=== PATIENT | male | born 1945 | race Asian ===

== ENCOUNTER 2022-05-14 05:42 | Inpatient (IN) | payer MEDICARE, OTHER ==
[2022-05-14] VITALS (30 sets, daily range): BP systolic 100–142; BP diastolic 52–66
[~2022-05-14] VITALS: Ht 167.6 cm; Wt 73.9 kg
[2022-05-14] MEDS ORDERED: PIPERACILLIN /TAZOBACTAM 3.375 G in IV D5W 50 ML IV ONE (06:00)
[2022-05-14] MEDS ORDERED: VANCOMYCIN 1 GM in IV D5W 250 ML IV ONE (06:00)
--- NOTE | 2022-05-14 06:02 | NUR ---
BETTE 39 FROM A CARE FACILITY FOR C/O LOW O2 SAT. PATIENT OBTUNDED, NON-VERBAL WITH TRAH AND VENT DEPENDENT. PATIENT WAS PLACED TO BED 5 ER. RT AAT BED SIDE. PT WAS CONNECTED TO VENT, SATTING 96%, SUCTIONED WITH BLOODY DISCHARGES. PT WAS PLACED ON A MONITOR. AFEBRILE. GT, F/C IN PLACE. WILL CONT TO MONITOR
[2022-05-14 06:25] LABS: ABG BASE EXCESS -1.7 mmol/L; ABG PCO2 37.8 mmHg (35.0-45.0); ABG PH 7.399 (7.350-7.450); ABG PO2 55.2 mmHg (75.0-100.0); COHb 0.3 % (0.5-1.5); MetHb 0.5 % (0.0-1.5); O2Hb 87.5 % (94.0-97.0); PEEP,BG 5 cm H2O; SITE, ABG Left Radial; VT, ABG 550 mL
[2022-05-14] MEDS ORDERED: PIPERACILLIN /TAZOBACTAM 3.375 G VIAL IV ONE (06:40)
--- NOTE | 2022-05-14 06:53 | NUR ---
BLOOD AND CULTURES COLLECTED AND SENT TO LAB
--- NOTE | 2022-05-14 06:53 | NUR ---
COVID SWAB COLLECTED
--- NOTE | 2022-05-14 06:55 | NUR ---
NURSE SUP WAS CALLED FOR MIDLINE
--- NOTE | 2022-05-14 07:07 | NUR ---
VENT SETTINGS: FiO2 100%, VT 550, RATE 20, PEEP 8
--- NOTE | 2022-05-14 07:08 | NUR ---
XRAY AT BEDSIDE
[2022-05-14 07:10] LABS: BASOPHILS # (AUTO) 0.1 K/uL (0.0-0.2); BASOPHILS % (AUTO) 0.4 % (0.0-2.0); EOSINOPHILS % (AUTO) 1.3 % (0.0-6.0); HEMATOCRIT 24 % (39-51); LYMPHOCYTES # (AUTO) 0.7 K/uL (0.8-4.8); LYMPHOCYTES % (AUTO) 4.2 % (20.0-44.0); MEAN CORPUSCULAR HGB CONC 33 g/dl (31.0-36.0); MEAN CORPUSCULAR VOLUME 81 fL (80-96); MONOCYTES # (AUTO) 0.5 K/uL (0.1-1.30); NEUTROPHILS % (AUTO) 91.1 % (43.0-81.0); PLATELET COUNT (AUTO) 146 K/uL (150-450); RED BLOOD CELL COUNT(AUTO) 2.98 MIL/uL (4.5-6.0); WHITE BLOOD COUNT (AUTO) 16.5 K/uL (4.3-11.0)
[2022-05-14 07:13] LABS: CALCIUM, SERUM 8.6 mg/dL (8.5-10.1); CARBON DIOXIDE 23 mmol/L (21-32); CHLORIDE 84 mmol/L (98-107); CREATININE 5.2 mg/dL (0.6-1.3); GLUCOSE 171 mg/dL (74-106); SODIUM SERUM 124 mmol/L (136-145)
--- NOTE | 2022-05-14 07:17 | NUR ---
CRITICAL BUN 169
[2022-05-14 07:19] LABS: ALANINE AMINOTRANSFERASE 53 U/L (12-78); ALBUMIN 1.9 g/dL (3.4-5.0); ALKALINE PHOSPHATASE 101 U/L (46-116); ASPARTATE AMINOTRANSFERASE 53 U/L (15-37); BILIRUBIN,DIRECT 0.2 mg/dL (0.0-0.2); BILIRUBIN,TOTAL 0.4 mg/dL (0.2-1.0); TOTAL PROTEIN, SERUM 6.9 g/dL (6.4-8.2)
[2022-05-14 07:23] LABS: UREA NITROGEN, BLOOD 169 mg/dL (7-18)
[2022-05-14 07:24] LABS: BILIRUBIN,URINE NEGATIVE (NEGATIVE); COLOR,URINE YELLOW (YELLOW); LEUKOCYTE ESTERASE ,URINE 1+ (NEGATIVE); NITRITE, URINE NEGATIVE (NEGATIVE); PROTEIN,URINE 2+ mg/dl (NEGATIVE); UGLUCOSE NEGATIVE (NEGATIVE); UROBILINOGEN,URINE 0.2 EU/dL (0.2)
[2022-05-14 07:32] LABS: BACTERIA,URINE Moderate /HPF (None Seen); CALCIUM OXALATE CRYSTALS,UR Few /HPF (None Seen); SQUAMOUS EPITHELIAL CELL,UR Few /HPF (None Seen); WBC,URINE TOO NUMEROUS TO COUN /HPF (0-3)
--- NOTE | 2022-05-14 07:39 | NUR ---
CALLED NUMBER LISTED ON POLST TO OBTAIN PICC LINE CONSENT, LEFT A VOICEMAIL. DR SOLIZ SIGNED EMEGENCY CONSENT, PICC LINE NURSE AT BEDSIDE
--- NOTE | 2022-05-14 08:18 | NUR ---
PICC LINE CONFIRMED BY X RAY. PICC LINE LOCATED R UPPER ARM
[2022-05-14] MEDS: IV NS 0.9% 1,000 ML IV PRN ×2 (08:29→13:47)
[2022-05-14] MEDS ORDERED: AMIN30LI2 GT (08:30)
[2022-05-14] MEDS ORDERED: ZINC50TA69 GT (08:30)
[2022-05-14] MEDS ORDERED: SENN-261 GT (08:30)
[2022-05-14] MEDS ORDERED: MAGN400O6 GT (08:30)
[2022-05-14] MEDS ORDERED: INSU100V42 SQ (08:30)
[2022-05-14] MEDS ORDERED: CLON1PAT2 TD (08:30)
[2022-05-14] MEDS ORDERED: ALBU2.5V38 IH ×2 (08:30)
[2022-05-14] MEDS ORDERED: CHLO473M5 MM (08:30)
[2022-05-14] MEDS ORDERED: ASCO-352 GT (08:30)
[2022-05-14] MEDS ORDERED: CRAN425C6 GT (08:30)
[2022-05-14] MEDS ORDERED: METO25TA20 GT (08:30)
[2022-05-14] MEDS ORDERED: ACET650S11 RC (08:30)
[2022-05-14] MEDS ORDERED: ACET-2605 GT (08:30)
[2022-05-14] MEDS ORDERED: DOCU50LI GT (08:30)
[2022-05-14] MEDS ORDERED: INSU100V7 SQ (08:30)
[2022-05-14] MEDS ORDERED: NUTR1PAC14 GT (08:30)
[2022-05-14] MEDS ORDERED: DEXT38GE12 GT (08:30)
[2022-05-14] MEDS ORDERED: HYDR-4303 GT (08:30)
[2022-05-14] MEDS ORDERED: AMLO-212 GT (08:30)
[2022-05-14] MEDS ORDERED: HYDR-4076 GT (08:30)
[2022-05-14] MEDS ORDERED: LANS30CA56 GT (08:30)
[2022-05-14] MEDS ORDERED: METF-442 GT (08:30)
[2022-05-14] MEDS ORDERED: IPRA0.2S9 IH ×2 (08:30)
[2022-05-14] MEDS ORDERED: COLL30OI TP (08:30)
[2022-05-14] MEDS ORDERED: MULT-447 GT (08:30)
[2022-05-14] MEDS ORDERED: ACET-868 GT (08:30)
[2022-05-14] MEDS ORDERED: NUT.237L30 GT (08:30)
[2022-05-14] MEDS ORDERED: ASPI-1169 GT (08:30)
[2022-05-14] MEDS ORDERED: BISA10SU11 RC (08:30)
[2022-05-14] MEDS ORDERED: CRAN3875 GT (08:30)
[2022-05-14] MEDS ORDERED: MERO1VIA23 IV (08:30)
--- NOTE | 2022-05-14 08:53 | NUR ---
RT AT BEDSIDE, PEEP CHANGED TO [address] SOLIS'S ORDERS
--- NOTE | 2022-05-14 09:36 | NUR ---
REPORT GIVEN TO GABBI FOR CORIE
[2022-05-14] MEDS ORDERED: PIPERACILLIN /TAZOBACTAM 3.375 G in IV D5W 50 ML IV SCH (10:00)
--- NOTE | 2022-05-14 11:17 | NUR ---
PT TAKEN TO CT AND TO ICU AFTER WITH ACLS PROTOCOLS IN PLACE. PT RECEIVED BY SARINA SEO.
[2022-05-14] MEDS ORDERED: DESMOPRESSIN 20 MCG in IV NS 0.9% 50 ML IV ONE (13:00)
[2022-05-14] MEDS ORDERED: PIPERACILLIN /TAZOBACTAM 2.25 G in IV D5W 50 ML IV SCH (15:00)
[2022-05-14] MEDS ORDERED: HEPARIN INFUSION/D5W 500 ML IV PRN (18:00)
[2022-05-14] MEDS ORDERED: DILTIAZEM HCL 50 MG IV IV ONE (18:00)
[2022-05-14] MEDS ORDERED: AMIODARONE 150 MG in IV D5W 100 ML IV ONE (18:30)
[2022-05-14] MEDS: AMIODARONE 450 MG in IV D5W 241 ML IV PRN (18:45)
[2022-05-14] MEDS ORDERED: ONDANSETRON HCL/PF 4 MG/2 ML VIAL IVP PRN (19:00)
[2022-05-14] MEDS ORDERED: Z GUARD REMEDY 4 OZ OINT TP PRN (19:00)
[2022-05-14] MEDS: MEROPENEM 500 MG in IV NS 0.9% 50 ML IV SCH (19:01)
[2022-05-14 20:35] LABS: CALCIUM, SERUM 8.5 mg/dL (8.5-10.1); CARBON DIOXIDE 28 mmol/L (21-32); CHLORIDE 88 mmol/L (98-107); CREATININE 4.1 mg/dL (0.6-1.3); GLUCOSE 231 mg/dL (74-106); POTASSIUM 4.9 mmol/L (3.5-5.1); SODIUM SERUM 127 mmol/L (136-145)
[2022-05-14 20:43] LABS: UREA NITROGEN, BLOOD 133 mg/dL (7-18)
[2022-05-14] MEDS: HEPARIN SODIUM, PORCINE 5000 UNITS/1 ML VIAL SQ SCH (21:00)
[2022-05-14 23:28] LABS: CALCIUM, SERUM 8.5 mg/dL (8.5-10.1); CARBON DIOXIDE 28 mmol/L (21-32); CHLORIDE 89 mmol/L (98-107); CREATININE 4.1 mg/dL (0.6-1.3); GLUCOSE 224 mg/dL (74-106); POTASSIUM 5.2 mmol/L (3.5-5.1); SODIUM SERUM 129 mmol/L (136-145)
[2022-05-14 23:31] LABS: UREA NITROGEN, BLOOD 130 mg/dL (7-18)
[2022-05-15] VITALS (61 sets, daily range): BP systolic 104–150; BP diastolic 47–73
[2022-05-15] MEDS: IV NS 0.9% 1,000 ML IV PRN ×3 (01:00→22:07)
[2022-05-15] MEDS: AMIODARONE 450 MG in IV D5W 241 ML IV PRN (04:10)
[2022-05-15 04:47] LABS: BASOPHILS % (AUTO) 0.1 % (0.0-2.0); EOSINOPHILS % (AUTO) 3.6 % (0.0-6.0); HEMATOCRIT 22 % (39-51); HEMOGLOBIN 7.2 g/dL (13.5-17.5); LYMPHOCYTES # (AUTO) 0.5 K/uL (0.8-4.8); LYMPHOCYTES % (AUTO) 3.2 % (20.0-44.0); MEAN CORPUSCULAR HGB CONC 33 g/dl (31.0-36.0); MEAN CORPUSCULAR VOLUME 83 fL (80-96); MONOCYTES # (AUTO) 0.4 K/uL (0.1-1.30); MONOCYTES % (AUTO) 2.2 % (2.0-12.0); NEUTROPHILS # (AUTO) 14.8 K/uL (1.8-8.9); NEUTROPHILS % (AUTO) 90.9 % (43.0-81.0); PLATELET COUNT (AUTO) 130 K/uL (150-450); RED BLOOD CELL COUNT(AUTO) 2.64 MIL/uL (4.5-6.0); WHITE BLOOD COUNT (AUTO) 16.3 K/uL (4.3-11.0)
[2022-05-15 04:58] LABS: CALCIUM, SERUM 8.5 mg/dL (8.5-10.1); CARBON DIOXIDE 26 mmol/L (21-32); CHLORIDE 90 mmol/L (98-107); CREATININE 3.9 mg/dL (0.6-1.3); GLUCOSE 197 mg/dL (74-106); MAGNESIUM 2.7 mg/dL (1.8-2.4); PHOSPHORUS 5.1 mg/dL (2.5-4.9); SODIUM SERUM 129 mmol/L (136-145)
[2022-05-15 05:02] LABS: UREA NITROGEN, BLOOD 126 mg/dL (7-18)
[2022-05-15 06:06] LABS: CHOLESTEROL 78 mg/dL (<200); LDL 21 mg/dL (0-99); TRIGLYCERIDES 543 mg/dL (30-150)
[2022-05-15 06:08] LABS: HDL CHOLESTEROL 9 mg/dL (40-60)
[2022-05-15] MEDS: MEROPENEM 500 MG in IV NS 0.9% 50 ML IV SCH ×2 (06:46→18:10)
[2022-05-15] MEDS ORDERED: VANCOMYCIN POST DIALYSIS 500MG IV PRN ×2 (08:00)
[2022-05-15 08:51] LABS: ABG BASE EXCESS 2.1 mmol/L; ABG PCO2 41.8 mmHg (35.0-45.0); ABG PH 7.424 (7.350-7.450); ABG PO2 71.1 mmHg (75.0-100.0); AaDO2 455.4 mmHg; COHb 0.2 % (0.5-1.5); MetHb 0.2 % (0.0-1.5); O2Hb 93.6 % (94.0-97.0); SITE, ABG Right Radial
[2022-05-15] MEDS: HEPARIN SODIUM, PORCINE 5000 UNITS/1 ML VIAL SQ SCH ×2 (09:00→20:38)
[2022-05-15] MEDS ORDERED: DEXTROSE 50%-WATER 50 ML DISP.SYRIN IV PRN (11:00)
[2022-05-15] MEDS: BLOOD SUGAR DIAGNOSTIC 1 EACH STRIP IN SCH ×3 (11:31→23:05)
[2022-05-15] MEDS ORDERED: BLOOD SUGAR DIAGNOSTIC 1 EACH STRIP IN SCH (12:00)
[2022-05-15] MEDS: INSULIN REGULAR, HUMAN 100 UNIT/ML 3 ML VIAL SQ PRN ×3 (12:18→23:08)
[2022-05-15] MEDS ORDERED: VANCOMYCIN 1 GM in IV D5W 250ml IV ONE (13:00)
[2022-05-15] MEDS ORDERED: EPOETIN ALFA-EPBX 10,000 UNIT/ML VIAL IV ONE (15:00)
[2022-05-15] MEDS: AMIODARONE HCL 200 MG TABLET GT SCH ×2 (16:06→20:37)
--- NOTE | 2022-05-15 18:00 | NUR ---
ICU Note: Cont with Vent Management at this time. Cont to titirate FiO2 to keep O2 Sat >88%. Improved oxygenation noted. Hx of VDRF Recent CXR shows Bilateral chest infiltrates most likely ventilator associated pneumonia. Follow up ABG and treat as needed. Currently on Temporary HD for Acute renal failure. Some improvment with BUN/Cr with IVF hydration. Will Start TF tonight. G tube in place. Continue ICU level of care, per Dr Merritt.
[2022-05-15] MEDS: NEPRO 1,000 ML BOTTLE NG PRN (19:49)
--- NOTE | 2022-05-15 20:07 | NUR ---
MESSAGE BROKER DEVELOPER OPENING NOTE PT RECEIVED IN BED, OBTUNDED, NON-VERBAL, OPENS EYES. PT ON VENT WITH PORTEX #7, AC 20, TV 550, FIO2 50%, PEEP 10 WITH CURRENT O2SAT OF 91%; NO S/S OF RESP DISTRESS, NO SOB OR COUGH, NON-LABORED AND EQUAL BREATHING; APPEARS COMFORTABLE OVERALL. PT ATTACHED TO BEDSIDE MONITOR, SR WITH HR OF 95. CONDOM CATH IN PLACE. CLINT PICC INTACT AND PATENT, FLUSHES EASILY WITH NO RESISTANCE, NS AT 100 ML/HR; RIJ HD CATH INTACT AND PATENT, DRESSING C/D/I. BED IN LOWEST POSITION, CALL LIGHT WITHIN REACH, SIDE RAILS UP X3. WILL CONTINUE TO MONITOR THROUGHOUT THE NIGHT.
[2022-05-15] MEDS: ACETAMINOPHEN 325 MG TABLET PO PRN (20:37)
--- NOTE | 2022-05-15 20:38 | NUR ---
RN NOTE PT NOTED TO HAVE TEMPERATURE OF 100.0; PT ADMINISTERED TYLENOL 650 MG, WILL MONITOR FOR EFFECTIVENESS. HEPARIN SCHEDULED FOR 2100 HELD D/T BLEEDING NOTED FROM TRACH SITE.
[2022-05-16] VITALS (29 sets, daily range): BP systolic 107–159; BP diastolic 48–66
[2022-05-16] MEDS: BLOOD SUGAR DIAGNOSTIC 1 EACH STRIP IN SCH ×3 (05:30→18:14)
[2022-05-16] MEDS: INSULIN REGULAR, HUMAN 100 UNIT/ML 3 ML VIAL SQ PRN ×3 (05:32→17:25)
[2022-05-16 06:20] LABS: CALCIUM, SERUM 8.6 mg/dL (8.5-10.1); CARBON DIOXIDE 28 mmol/L (21-32); CHLORIDE 98 mmol/L (98-107); CREATININE 2.9 mg/dL (0.6-1.3); GLUCOSE 255 mg/dL (74-106); MAGNESIUM 2.5 mg/dL (1.8-2.4); PHOSPHORUS 3.7 mg/dL (2.5-4.9); POTASSIUM 3.6 mmol/L (3.5-5.1); SODIUM SERUM 137 mmol/L (136-145)
[2022-05-16 06:29] LABS: EOSINOPHILS % (AUTO) 3.5 % (0.0-6.0); HEMATOCRIT 29 % (39-51); HEMOGLOBIN 9.2 g/dL (13.5-17.5); LYMPHOCYTES # (AUTO) 0.6 K/uL (0.8-4.8); LYMPHOCYTES % (AUTO) 3.8 % (20.0-44.0); MEAN CORPUSCULAR HGB CONC 32 g/dl (31.0-36.0); MEAN CORPUSCULAR VOLUME 84 fL (80-96); MONOCYTES # (AUTO) 0.3 K/uL (0.1-1.30); MONOCYTES % (AUTO) 1.8 % (2.0-12.0); NEUTROPHILS # (AUTO) 15.3 K/uL (1.8-8.9); NEUTROPHILS % (AUTO) 90.9 % (43.0-81.0); PLATELET COUNT (AUTO) 151 K/uL (150-450); RED BLOOD CELL COUNT(AUTO) 3.48 MIL/uL (4.5-6.0); WHITE BLOOD COUNT (AUTO) 16.9 K/uL (4.3-11.0)
--- NOTE | 2022-05-16 06:34 | NUR ---
TECHNOLOGIST DEVELOPMENT CLOSING NOTE PT REMAINS IN BED, OBTUNDED, OPENS EYES, NON-VERBAL; NO SIGNIFICANT CHANGES TO NEURO STATUS. CONTINUES ON SAME VENT SETTINGS WITH FIO2 50% AND PEEP AT 10; NOTED TO HAVE O2SAT AT 89% WHEN CLEANING PT WITH HIGHEST O2SAT AT 94%; NO S/S OF RESP DISTRESS, NO SOB, NON-LABORED AND EQUAL BREATHING. ATTACHED TO EXTERNAL MONITOR, SR-ST WITH HR RANGING FROM 87-108. CONDOM CATH INTACT AND PATENT, DRAINING CLOUDY AND YELLOW URINE WITH MINIMAL URINE OUTPUT OF 25 ML THROUGHOUT THE WHOLE NIGHT. GTD C/D/I WITH NEPRO NOW AT 45 ML/HR WITH NO RESIDUALS NOTED. CLINT PICC INFUSING NS AT 100 ML/HR. WOUNDS CLEANSED AND NEW DRESSINGS APPLIED. ALL DUE MEDS ADMINISTERED DURING THE NIGHT. BED IN LOWEST POSITION, CALL LIGHT WITHIN REACH, SIDE RAILS UP X3. WILL ENDORSE TO DAYSHIFT NURSE TO CONTINUE CARE.
[2022-05-16 06:43] LABS: IRON, SERUM 18 ug/dl (50-175); TOTAL IRON BINDING CAPACITY 102 ug/dl (250-450)
[2022-05-16 06:55] LABS: UREA NITROGEN, BLOOD 84 mg/dL (7-18)
[2022-05-16 07:11] LABS: FERRITIN 6654 ng/mL (8-388)
[2022-05-16 08:15] LABS: ABG BASE EXCESS 1.3 mmol/L; ABG OXYGEN SATURATION 91.3 % (92.0-98.5); ABG PCO2 33.6 mmHg (35.0-45.0); ABG PH 7.483 (7.350-7.450); ABG PO2 56.4 mmHg (75.0-100.0); AaDO2 262.3 mmHg; COHb 0.6 % (0.5-1.5); MetHb 0.3 % (0.0-1.5); O2Hb 90.5 % (94.0-97.0); SITE, ABG Right Radial
[2022-05-16] MEDS: HEPARIN SODIUM, PORCINE 5000 UNITS/1 ML VIAL SQ SCH ×2 (09:00→20:59)
[2022-05-16] MEDS ORDERED: VANCOMYCIN HCL 0.75 GM in IV D5W 250 ML IV SCH (09:00)
[2022-05-16] MEDS: MEROPENEM 500 MG in IV NS 0.9% 50 ML IV SCH ×2 (09:25→18:14)
[2022-05-16] MEDS: AMIODARONE HCL 200 MG TABLET GT SCH ×2 (09:29→21:01)
--- NOTE | 2022-05-16 09:32 | NUR ---
WOUND CARE CONSULT: PT PRESENTS WITH INTACT DEEP TISSUE INJURIES WITH SCARRING TO BILATERAL HEELS, HYPERGRANULATION TISSUE TO G TUBE SITE AND SACRAL STAGE 3 PRESSURE ULCER, ALL PRESENT ON ADMISSION. DR ROE MANRIQUEZ CALLED FOR SURGICAL CONSULT. DISCUSSED SKIN PROTECTION WITH NURSING STAFF. PT IS ON DEEP ISOFLEX LOW AIRLOSS BED. CONDOM CATH IN USE AT THIS TIME. IN AGREEMENT WITH PLAN OF CARE. Addendum: 05/16/22 at 9111 by ALIDA RODRIGUEZ WNDNU Amended: Links added.
[2022-05-16] MEDS ORDERED: IV NS 0.9% 1,000 ML IV SCH (10:00)
[2022-05-16] MEDS: THERAHONEY GEL 1.5 OZ TUBE TP SCH (12:01)
[2022-05-16 12:21] LABS: BAND % (MANUAL) 23 % (0.0-5.0); EOSINOPHILS % (MANUAL) 2 % (0-4); LYMPHOCYTES % (MANUAL) 5 % (16-48); MONOCYTES % (MANUAL) 2 % (0-11.0); NEUTROPHILS % (MANUAL) 68 (42-76)
--- NOTE | 2022-05-16 17:35 | NUR ---
ICU Note; Cont with Vent Management at this time. Hx of VDRF. Cont to titirate FiO2 to keep O2 Sat >88%. remains on PEP+10 Cont with IV Abx as scheduled to treat Bilateral chest infiltrates most likely ventilator associated pneumonia per CXR Follow up ABG and treat as needed. Held HD for today 05/16/22. Acute renal failure poss resolving with improvement noted with BUN/Cr and electrolytes. Cont to tolerate TF as ordered. Abd distended slightly firm. No emesis/vomiting noted. Cont with Accucheck and cover with ISS. follow up HgA1C result Continue ICU level of care, per PMD
[2022-05-16] MEDS: ACETAMINOPHEN 325 MG TABLET PO PRN (20:57)
--- NOTE | 2022-05-16 21:02 | NUR ---
RN NOTE NON ADMINISTER HEPARIN 5000 D/T BLEEDING AT TRACH SITE.
[2022-05-17] VITALS (29 sets, daily range): BP systolic 101–152; BP diastolic 50–73
[2022-05-17] MEDS: NEPRO 1,000 ML BOTTLE NG PRN (00:34)
[2022-05-17] MEDS: BLOOD SUGAR DIAGNOSTIC 1 EACH STRIP IN SCH ×5 (00:35→23:27)
[2022-05-17] MEDS: INSULIN REGULAR, HUMAN 100 UNIT/ML 3 ML VIAL SQ PRN ×5 (00:43→23:28)
[2022-05-17 04:41] LABS: CALCIUM, SERUM 8.8 mg/dL (8.5-10.1); CARBON DIOXIDE 28 mmol/L (21-32); CHLORIDE 102 mmol/L (98-107); CREATININE 3.1 mg/dL (0.6-1.3); GLUCOSE 223 mg/dL (74-106); MAGNESIUM 2.6 mg/dL (1.8-2.4); PHOSPHORUS 4.8 mg/dL (2.5-4.9); POTASSIUM 3.5 mmol/L (3.5-5.1); SODIUM SERUM 140 mmol/L (136-145)
[2022-05-17 04:43] LABS: UREA NITROGEN, BLOOD 96 mg/dL (7-18)
[2022-05-17 05:00] LABS: BASOPHILS % (AUTO) 0.1 % (0.0-2.0); EOSINOPHILS % (AUTO) 3.2 % (0.0-6.0); LYMPHOCYTES # (AUTO) 0.9 K/uL (0.8-4.8); LYMPHOCYTES % (AUTO) 5.1 % (20.0-44.0); MEAN CORPUSCULAR HGB CONC 32 g/dl (31.0-36.0); MEAN CORPUSCULAR VOLUME 84 fL (80-96); MONOCYTES # (AUTO) 0.3 K/uL (0.1-1.30); MONOCYTES % (AUTO) 1.7 % (2.0-12.0); NEUTROPHILS # (AUTO) 16.7 K/uL (1.8-8.9); NEUTROPHILS % (AUTO) 89.9 % (43.0-81.0); PLATELET COUNT (AUTO) 179 K/uL (150-450); RED BLOOD CELL COUNT(AUTO) 2.39 MIL/uL (4.5-6.0); WHITE BLOOD COUNT (AUTO) 18.6 K/uL (4.3-11.0)
[2022-05-17 05:14] LABS: HEMATOCRIT 20 % (39-51); HEMOGLOBIN 6.5 g/dL (13.5-17.5)
[2022-05-17 05:35] LABS: BAND % (MANUAL) 19 % (0.0-5.0); BASOPHILS % (MANUAL) 0 % (0.0-2.0); EOSINOPHILS % (MANUAL) 1 % (0-4); LYMPHOCYTES % (MANUAL) 6 % (16-48); MONOCYTES % (MANUAL) 2 % (0-11.0); NEUTROPHILS % (MANUAL) 71 (42-76)
[2022-05-17] MEDS: MEROPENEM 500 MG in IV NS 0.9% 50 ML IV SCH ×2 (06:25→19:28)
--- NOTE | 2022-05-17 07:10 | NUR ---
MEDICAL CLINIC MANAGER OPENING NOTE: RECEIVED PT. IN BED, OBTUNDED, ONLY OPENS EYES TO PAINFUL STIMULI. NO S/S OF PAIN/DISCOMFORT AT THIS TIME. ON TRACH/VENT: PORTEX#7; AC - 20; VT - 550; FIO2 - 60%; PEEP - 10. NO S/S OF RESPIRATORY DISTRESS. WATER AND SEWER SYSTEMS SUPERINTENDENT READS SINUS TACH AT THIS TIME. ON CONDOM CATH WITH CLOUDY YELLOW URINE WITH SEDIMENTS DRAINING BELOW THE BLADDER. SKIN ISSUES NOTED, WILL DO WOUND TREATMENT ORDERED. GENERALIZED EDEMA NOTED. IV ACCESS ON CLINT PICC, PATENT, WITH NS RUNNING AT TKO. ALSO HAS R IJ HD CATH, DRESSING C/D/I. IV ACCESS HAS NO S/S OF INFILTRATION. SAFETY MEASURES IN PLACE: BED IN LOWEST & LOCKED POSITION, HOB ELEVATED AT 30 DEGREES, BED ALARM ON, SIDE RAILS UP, CALL LIGHT WITHIN REACH. WILL TURN AND REPOSITION AT LEAST Q2H. WILL CONTINUE TO MONITOR PT. FOR ANY CHANGES.
--- NOTE | 2022-05-17 07:43 | NUR ---
RN CLOSING NOTE PATIENT OBTUNDED. ON MECHANICAL VENT, NO CHANGES IN SETTINGS. SINUS RHTYHM/ SINUS TACH ON THE MONITOR. PRN TYLENOL GIVEN FOR TMAX 101.3. ICE PACKS ALSO PLACED ON PATIENT. CONDOM CATH IN PLACE. MUCOID BM X1. WOUND CARE DONE ORDERED. NEPRO RUNNING. RESIDUAL 30. ABD DISTENDED. FLATULENCE PRESENT. ABX GIVEN ORDER. BLOOD SUGAR MONITORED AND COVERED PER SLIDING SCALE. PENDING ct OF HEAD. HD PER NEPHRO. CRITICAL FOR HGB THIS AM. RHEA GROVES ORDERED 1 UNIT PRBC. CONSENT SIGN VIA TELEPHONE FROM DAUGHTER DICK SCHMIDT. DAUGHTER ASLLisandro REQUEST A FAMILY MEETING WITH AND CATIA FOR POC.
[2022-05-17] MEDS: THERAHONEY GEL 1.5 OZ TUBE TP SCH (08:32)
[2022-05-17] MEDS: AMIODARONE HCL 200 MG TABLET GT SCH ×2 (08:33→21:41)
[2022-05-17] MEDS: HEPARIN SODIUM, PORCINE 5000 UNITS/1 ML VIAL SQ SCH ×2 (08:55→21:00)
--- NOTE | 2022-05-17 08:56 | NUR ---
DIRT SHOVELER NOTE: HEPARIN 5,000 UNITS SCHEDULED AT 0900 WILL BE HELD DUE TO HGB OF 6.5 TODAY AND NOTED BLEEDING FROM THE TRACH TUBING. WILL CONTINUE TO MONITOR FOR S/S OF BLEEDING AND HYPOVOLEMIA.
[2022-05-17 09:20] LABS: BASOPHILS % (AUTO) 0.1 % (0.0-2.0); EOSINOPHILS % (AUTO) 3.5 % (0.0-6.0); HEMATOCRIT 22 % (39-51); HEMOGLOBIN 7.1 g/dL (13.5-17.5); LYMPHOCYTES # (AUTO) 0.9 K/uL (0.8-4.8); LYMPHOCYTES % (AUTO) 4.7 % (20.0-44.0); MEAN CORPUSCULAR HGB CONC 32 g/dl (31.0-36.0); MEAN CORPUSCULAR VOLUME 84 fL (80-96); MONOCYTES # (AUTO) 0.4 K/uL (0.1-1.30); MONOCYTES % (AUTO) 2.3 % (2.0-12.0); NEUTROPHILS # (AUTO) 16.9 K/uL (1.8-8.9); NEUTROPHILS % (AUTO) 89.4 % (43.0-81.0); PLATELET COUNT (AUTO) 185 K/uL (150-450); RED BLOOD CELL COUNT(AUTO) 2.66 MIL/uL (4.5-6.0); WHITE BLOOD COUNT (AUTO) 18.9 K/uL (4.3-11.0)
[2022-05-17 10:13] LABS: ABG BASE EXCESS 3.4 mmol/L; ABG OXYGEN SATURATION 98.3 % (92.0-98.5); ABG PCO2 39.2 mmHg (35.0-45.0); ABG PH 7.463 (7.350-7.450); ABG PO2 114.6 mmHg (75.0-100.0); AaDO2 270.1 mmHg; COHb 0.3 % (0.5-1.5); MetHb 0.3 % (0.0-1.5); O2Hb 97.7 % (94.0-97.0); SITE, ABG Right Radial; VENT MODE, BG AC 20 550 60% +10
[2022-05-17] MEDS: ACETAMINOPHEN 325 MG TABLET PO PRN ×2 (10:56→21:42)
--- NOTE | 2022-05-17 12:00 | NUR ---
PITCHING COACH NOTE: PT. HAD AN ORAL TEMP OF 99.8F AT 1045. TYLENOL 650MG GIVEN @ 1056. ORAL TEMP NOW IS 99.5F. WILL CONTINUE TO MONITOR PT.'S TEMP.
--- NOTE | 2022-05-17 12:18 | NUR ---
ABSTRACT MAKER NOTE: 1 UNIT OF PRBC TRANSFUSION STARTED AT 1105. H/H THIS AM IS 6.5 WITH THE REPEAT RESULT OF 7.07/23. DR. POSADAS MADE AWARE AND ORDERED 1 UNIT OF PRBC ONLY. 2ND ORDER WILL BE CANCELLED PER DR. POSADAS. NO TRANSFUSION REACTION AT THIS TIME. WILL CONTINUE TO MONITOR FOR ANY CHANGES.
[2022-05-17 14:46] LABS: BASOPHILS % (AUTO) 0.2 % (0.0-2.0); EOSINOPHILS % (AUTO) 4.1 % (0.0-6.0); HEMATOCRIT 24 % (39-51); HEMOGLOBIN 7.6 g/dL (13.5-17.5); LYMPHOCYTES # (AUTO) 0.8 K/uL (0.8-4.8); LYMPHOCYTES % (AUTO) 4.7 % (20.0-44.0); MEAN CORPUSCULAR HGB CONC 32 g/dl (31.0-36.0); MEAN CORPUSCULAR VOLUME 86 fL (80-96); MONOCYTES # (AUTO) 0.4 K/uL (0.1-1.30); MONOCYTES % (AUTO) 2.1 % (2.0-12.0); NEUTROPHILS # (AUTO) 15.2 K/uL (1.8-8.9); NEUTROPHILS % (AUTO) 88.9 % (43.0-81.0); PLATELET COUNT (AUTO) 177 K/uL (150-450); RED BLOOD CELL COUNT(AUTO) 2.77 MIL/uL (4.5-6.0); WHITE BLOOD COUNT (AUTO) 17.1 K/uL (4.3-11.0)
[2022-05-17] MEDS ORDERED: EPOETIN ALFA-EPBX 10,000 UNIT/ML VIAL IV ONE (15:00)
--- NOTE | 2022-05-17 15:00 | NUR ---
MEAT GRADING MACHINE OPERATOR NOTE: 1 UNIT OF PRBC TRANSFUSION STARTED AT 1105. FINISHED AT 1320 WITH NO TRANSFUSION REACTION NOTED. RECENT CBC AFTER TRANSFUSION SHOWS H/H OF 7.6/24. WILL CONTINUE TO MONITOR PT. FOR S/S OF BLEEDING.
[2022-05-17 15:50] LABS: BAND % (MANUAL) 5 % (0.0-5.0); EOSINOPHILS % (MANUAL) 2 % (0-4); LYMPHOCYTES % (MANUAL) 5 % (16-48); MONOCYTES % (MANUAL) 5 % (0-11.0); NEUTROPHILS % (MANUAL) 83 (42-76)
--- NOTE | 2022-05-17 18:10 | NUR ---
CATTLE SHIPPER NOTE: HEMODIALYSIS (HD) STARTED AT 1500 AND ENDED AT 1800. 2 LITERS OF FLUID REMOVED. PT. TOLERATED HD WELL. WILL CONTINUE TO MONITOR FOR ANY CHANGES.
--- NOTE | 2022-05-17 19:17 | NUR ---
SENIOR PROCESS ENGINEER CLOSING NOTE: PT. REMAINS IN BED, OBTUNDED, ONLY OPENS EYES TO PAINFUL STIMULI. NO S/S OF PAIN/DISCOMFORT AT THIS TIME. ON TRACH/VENT: PORTEX#7; AC - 20; VT - 550; FIO2 - 50%; PEEP - 8. NO S/S OF RESPIRATORY DISTRESS. CUSTOMER SERVICE OFFICER READS NSR/SINUS TACH THROUGHOUT SHIFT. CONDOM CATH DRAINED 550 ML CLOUDY YELLOW URINE THIS SHIFT. NO BM THIS SHIFT. WOUND TREATMENT DONE ORDERED. IV ACCESS ON CLINT PICC, PATENT, WITH NS RUNNING AT TKO. ALSO HAS R IJ HD CATH, DRESSING C/D/I. IV ACCESS HAS NO S/S OF INFILTRATION. HD DONE TODAY UNDER DR. MANRIQUEZ. VANCO GIVEN POST HD, VANCO TROUGH TODAY IS 17. SAFETY MEASURES MAINTAINED: BED IN LOWEST & LOCKED POSITION, HOB ELEVATED AT 30 DEGREES, BED ALARM ON, SIDE RAILS UP, CALL LIGHT WITHIN REACH. TURNED AND REPOSITIONED AT LEAST Q2H. ENDORSED CONTINUITY OF CARE TO APPLICATION SYSTEMS ADMINISTRATOR RN.
--- NOTE | 2022-05-17 19:40 | NUR ---
ICU/RN OPENING NOTES: RECEIVED PT IN BED, OBTUNDED, NON-VERBAL, OPENS EYES. PT ON VENT WITH PORTEX #7, AC 20, TV 550, FIO2 50%, PEEP 8 WITH CURRENT O2SAT OF 94%; NO S/S OF RESP DISTRESS, NO SOB OR COUGH, NON-LABORED AND EQUAL BREATHING; APPEARS COMFORTABLE OVERALL. PT ATTACHED TO BEDSIDE MONITOR, ST WITH HR OF 104. CONDOM CATH IN PLACE. CLINT PICC INTACT AND PATENT, FLUSHES EASILY WITH NO RESISTANCE WITH ABX RUNNING AT THIS TIME; RIJ HD CATH INTACT AND PATENT, DRESSING C/D/I. BED IN LOWEST POSITION, CALL LIGHT WITHIN REACH, SIDE RAILS UP X3. WILL CONTINUE TO MONITOR THROUGHOUT THE NIGHT.
--- NOTE | 2022-05-17 21:33 | NUR ---
RN NOTE SCHEDULED HEPARIN DOSE AT 2100 HOLD DUE TO LOW H&H AND BLEEDING AT TRACH SITE WHEN SUCTION. MD MADE AWARE. WILL CONT TO MONITOR.
--- NOTE | 2022-05-17 21:40 | NUR ---
RN NOTE NOTED PT WITH FEVER AT 101.6. TYLENOL GIVEN PRN ORDER AND COOLING MEASURES PROVIDED. WILL CONT TO MONITOR CLOSELY.
[2022-05-17] MEDS: MUPIROCIN 2% CREAM 15 GM TUBE TP SCH (21:52)
[2022-05-18] VITALS (39 sets, daily range): BP systolic 118–158; BP diastolic 56–71
--- NOTE | 2022-05-18 | NUR ---
RN NOTE BS CHECKED AT 268 MD/DL, 6 UNITS OF INSULIN GIVEN PER SLIDING SCALE. WILL CONT TO MONITOR.
--- NOTE | 2022-05-18 04:00 | NUR ---
RN NOTE TEMPERATURE CHECKED AT 99.5
[2022-05-18 04:08] LABS: CALCIUM, SERUM 9.7 mg/dL (8.5-10.1); CARBON DIOXIDE 28 mmol/L (21-32); CHLORIDE 106 mmol/L (98-107); CREATININE 2.3 mg/dL (0.6-1.3); GLUCOSE 219 mg/dL (74-106); POTASSIUM 3.6 mmol/L (3.5-5.1); SODIUM SERUM 142 mmol/L (136-145); UREA NITROGEN, BLOOD 63 mg/dL (7-18)
[2022-05-18] MEDS: BLOOD SUGAR DIAGNOSTIC 1 EACH STRIP IN SCH ×4 (05:03→23:43)
[2022-05-18] MEDS: INSULIN REGULAR, HUMAN 100 UNIT/ML 3 ML VIAL SQ PRN ×4 (05:25→23:50)
--- NOTE | 2022-05-18 06:00 | NUR ---
RN NOTE BS CHECKED AT 234 MD/DL, 4 UNITS OF INSULIN GIVEN PER SLIDING SCALE. WILL CONT TO MONITOR.
[2022-05-18] MEDS: MEROPENEM 500 MG in IV NS 0.9% 50 ML IV SCH ×2 (06:08→18:00)
--- NOTE | 2022-05-18 07:05 | NUR ---
RN NOTES RECEIVED PT ON BED, VENT/TRACH DEPENDENT, TRACH, CARE DONE, OBTUNDED, ON TELE ST HR IN 100'S , IV SITE CDI, SAFETY MEASURES IN PLACED , SR UP x3, CALL LIGHT WITHIN EASY REACH, BED LOCKED AND IN LOWEST POSITION, CONTINUE TO MONITOR.
--- NOTE | 2022-05-18 07:14 | NUR ---
ICU/RN CLOSING NOTES: PT IN BED, OBTUNDED, NON-VERBAL, OPENS EYES. PT ON VENT WITH PORTEX #7, AC 20, TV 550, FIO2 50%, PEEP 8 WITH CURRENT O2SAT OF 94%; NO S/S OF RESP DISTRESS, NO SOB OR COUGH, NON-LABORED AND EQUAL BREATHING; APPEARS COMFORTABLE OVERALL. PT ATTACHED TO BEDSIDE MONITOR, ST WITH HR OF 100. CONDOM CATH IN PLACE. CLINT PICC INTACT AND PATENT, FLUSHES EASILY WITH NO RESISTANCE WITH NS RUNNING AT TKO; RIJ HD CATH INTACT AND PATENT, DRESSING C/D/I. ALL DUE MEDS GIVEN, KEPT DRY AND CLEAN, BED IN LOWEST POSITION, CALL LIGHT WITHIN REACH, SIDE RAILS UP X3. ENDORSED TO AM SHIFT SOFYA RN FOR CONTINUITY OF CARE.
[2022-05-18] MEDS: HEPARIN SODIUM, PORCINE 5000 UNITS/1 ML VIAL SQ SCH ×2 (08:05→21:03)
[2022-05-18] MEDS: THERAHONEY GEL 1.5 OZ TUBE TP SCH (08:06)
[2022-05-18] MEDS: AMIODARONE HCL 200 MG TABLET GT SCH ×2 (08:06→21:01)
[2022-05-18] MEDS: MUPIROCIN 2% CREAM 15 GM TUBE TP SCH ×2 (08:07→21:02)
[2022-05-18] MEDS: ACETAMINOPHEN 325 MG TABLET PO PRN ×2 (08:07→15:20)
--- NOTE | 2022-05-18 14:00 | NUR ---
RN NOTES T=102.8 IRMA GRAHAM, x2 SETS ORDERED , COOLING BLANKET APPLIED , CONTINUE TO MONITOR
--- NOTE | 2022-05-18 14:45 | NUR ---
HEAD CT CANCELLED PER DR. SOLIS. NO INDICATION AT THIS TIME.
[2022-05-18] MEDS: NEPRO 1,000 ML BOTTLE NG PRN (16:41)
--- NOTE | 2022-05-18 18:29 | NUR ---
RN NOTES T=100.0 AT THIS TIME , TOLERAING VENT SETTING WELL, O2 SAT WNL, ON TELE ST , CONDOM CATH IN PLACE. CLINT PICC INTACT AND PATENT, FLUSHES EASILY WITH NO RESISTANCE WITH NS RUNNING AT TKO; RIJ HD CATH INTACT AND PATENT, DRESSING C/D/I. KEPT DRY AND CLEAN, BED IN LOWEST POSITION, CALL LIGHT WITHIN REACH, SIDE RAILS UP X3. WILL ENDORSE TO FREIGHT LOADING SUPERVISOR NURSE FOR CONTINITUY OF CARE .
--- NOTE | 2022-05-18 19:39 | NUR ---
RCVD PT TRACHED SIZE PORTEX 7 ON [facility] VENT SETTINGS OF AC 20,VT 550, FIO2 50% PEEP 5. SUCTIONED SMALL AMOUNT OF CARRERA THICK SECRETIONS . SHIP PILOT DISPATCHER DONE , TRACH IS SECURED AND PATENT. AMBU BAG AT BEDSIDE. VENT PLUGGED INTO RED OUTLET, VENT ALARMS ON AND AUDIBLE. NO RESPIRATORY DISTRESS NOTED AT THIS TIME. WILL CONTINUE TO MONITOR T/O SHIFT
--- NOTE | 2022-05-18 21:00 | NUR ---
ICU/RN: ALL DUE MEDS GIVEN. COOLING MEASURES IN PLACE. WILL CONTINUE PLAN OF CARE.
[2022-05-19] VITALS (25 sets, daily range): BP systolic 135–188; BP diastolic 61–95
[2022-05-19] MEDS: NEPRO 1,000 ML BOTTLE NG PRN (02:11)
[2022-05-19] MEDS: ACETAMINOPHEN 325 MG TABLET PO PRN ×2 (02:11→20:59)
--- NOTE | 2022-05-19 02:28 | NUR ---
ICU/RN: BED BATH GIVEN. LINENS CHANGED. CONDOM CATH CHANGED.
[2022-05-19 04:07] LABS: CALCIUM, SERUM 10.8 mg/dL (8.5-10.1); CARBON DIOXIDE 30 mmol/L (21-32); CHLORIDE 109 mmol/L (98-107); CREATININE 2.6 mg/dL (0.6-1.3); GLUCOSE 226 mg/dL (74-106); POTASSIUM 3.9 mmol/L (3.5-5.1); SODIUM SERUM 146 mmol/L (136-145); UREA NITROGEN, BLOOD 78 mg/dL (7-18)
[2022-05-19] MEDS: BLOOD SUGAR DIAGNOSTIC 1 EACH STRIP IN SCH ×3 (06:03→18:06)
[2022-05-19] MEDS: MEROPENEM 500 MG in IV NS 0.9% 50 ML IV SCH ×2 (06:03→17:44)
[2022-05-19 06:05] LABS: ABG BASE EXCESS 2.8 mmol/L; ABG OXYGEN SATURATION 95.9 % (92.0-98.5); ABG PCO2 39.1 mmHg (35.0-45.0); ABG PH 7.455 (7.350-7.450); ABG PO2 85.4 mmHg (75.0-100.0); AaDO2 227.1 mmHg; COHb 0.4 % (0.5-1.5); MetHb 0.2 % (0.0-1.5); O2Hb 95.3 % (94.0-97.0); PEEP,BG 5 cm H2O; SITE, ABG Right Radial; VT, ABG 550 mL
[2022-05-19] MEDS: INSULIN REGULAR, HUMAN 100 UNIT/ML 3 ML VIAL SQ PRN ×3 (06:15→17:43)
--- NOTE | 2022-05-19 07:30 | NUR ---
OPENING NOTE: REPORT RECEIVED FROM JEFFREY BRANCH. ORDERS AND LABS REVIEWED DURING REPORT. PER REPORT PT HAS CONDOM CATH THAT WAS REPLACED OVERNIGHT. UNKNOWN IF PATIENT WILL HAVE HD TODAY. DR SHANIQUA MANRIQUEZ WILL EVALUATE WHEN HE MAKES ROUNDS. NO CHANGES IN VENT SETTINGS OVERNIGHT PER REPORT. NO GTTS INFUSING AT THIS TIME. PT CHECKED ON HOURLY AND PRN BY NURSING STAFF.
[2022-05-19] MEDS: AMIODARONE HCL 200 MG TABLET GT SCH ×2 (08:57→20:59)
[2022-05-19] MEDS: HEPARIN SODIUM, PORCINE 5000 UNITS/1 ML VIAL SQ SCH ×2 (08:59→21:01)
[2022-05-19] MEDS: MUPIROCIN 2% CREAM 15 GM TUBE TP SCH ×2 (09:18→21:00)
[2022-05-19] MEDS: THERAHONEY GEL 1.5 OZ TUBE TP SCH (09:18)
[2022-05-19] MEDS: IV NS 0.9% 250 ML IV PRN (17:38)
--- NOTE | 2022-05-19 18:38 | NUR ---
END OF SHIFT NOTE: PT HAD AN UNEVENTFUL SHIFT. NO HD TODAY. URINE OUTPUT THIS SHIFT WAS 675 ML PLUS 1 VOID. CONDOM CATH REPLACED TODAY. TRACH CARE DONE PER PROTOCOL. WOUND CARE DONE PER PROTOCOL, WOUND CULTURE SENT TO LAB PER MD ORDERS. SPUTUM CULTURE SENT TO LAB PER MD ORDERS. TMAX THIS SHIFT IS 100.0, COOLING BLANKET ON PATIENT. PT CHECKED ON HOURLY AND PRN BY NURSING STAFF.
--- NOTE | 2022-05-19 21:30 | NUR ---
ICU/PUBLIC RELATIONS PROFESSIONAL WHEN PT WAS TURNED AND REPOSITIONED, PT HAD FACIAL GRIMACE, ALONG WITH INCREASED HEART RATE. TYLENOL WAS GIVEN THROUGH THE G/TUBE FOR THIS. FLACC PAIN WAS 4-6/10. WILL MONITOR THIS PT.
[2022-05-20] VITALS (27 sets, daily range): BP systolic 143–170; BP diastolic 66–88
[2022-05-20] MEDS: BLOOD SUGAR DIAGNOSTIC 1 EACH STRIP IN SCH ×4 (01:26→18:15)
[2022-05-20] MEDS: INSULIN REGULAR, HUMAN 100 UNIT/ML 3 ML VIAL SQ PRN ×4 (01:29→18:19)
[2022-05-20] MEDS: NEPRO 1,000 ML BOTTLE NG PRN (02:51)
--- NOTE | 2022-05-20 03:00 | NUR ---
ICU/SUPERVISOR CEREAL PT PROVIDED AM CARE. PT TOLERATED THIS WELL, REMAINS ON CURRENT VENT SETTINGS. PT WAS TURNED AND REPOSITIONED FOR COMFORT AND CARE
[2022-05-20 05:03] LABS: CALCIUM, SERUM 11.9 mg/dL (8.5-10.1); CARBON DIOXIDE 30 mmol/L (21-32); CHLORIDE 111 mmol/L (98-107); CREATININE 2.6 mg/dL (0.6-1.3); GLUCOSE 253 mg/dL (74-106); POTASSIUM 3.9 mmol/L (3.5-5.1); SODIUM SERUM 150 mmol/L (136-145)
[2022-05-20 05:05] LABS: UREA NITROGEN, BLOOD 86 mg/dL (7-18)
[2022-05-20] MEDS: MEROPENEM 500 MG in IV NS 0.9% 50 ML IV SCH ×2 (06:02→18:16)
--- NOTE | 2022-05-20 07:30 | NUR ---
OPENING NOTE: REPORT RECEIVED FROM DICK WILLIAM. ORDERS AND LABS REVIEWED DURING REPORT. PER REPORT CONDOM CATH HAD TO BE REPLACED OVERNIGHT AND DOES NOT STAY ON WELL, PT NEEDS ACCURATE I/O'S, WILL INSERT BEASLEY CATHETER PER PROTOCOL. PT CHECKED ON HOURLY AND PRN BY NURSING STAFF.
[2022-05-20] MEDS ORDERED: IV 1/2NS 1000 ML 1,000 ML IV ONE (08:00)
--- NOTE | 2022-05-20 09:25 | NUR ---
16 F BEASLEY CATHETER INSERTED AT THIS TIME WITHOUT DIFFICULTY. 625ML OF CLEAR MUMTAZ URINE RETURNED. DR POSADAS AWARE.
[2022-05-20] MEDS: AMIODARONE HCL 200 MG TABLET GT SCH ×2 (09:36→20:53)
[2022-05-20] MEDS: THERAHONEY GEL 1.5 OZ TUBE TP SCH (09:37)
[2022-05-20] MEDS: MUPIROCIN 2% CREAM 15 GM TUBE TP SCH ×2 (09:37→20:57)
[2022-05-20] MEDS: HEPARIN SODIUM, PORCINE 5000 UNITS/1 ML VIAL SQ SCH ×3 (09:43→21:00)
[2022-05-20] MEDS: INSULIN GLARGINE, 100 UNIT/ML CARTRIDGE SQ SCH (09:43)
[2022-05-20 10:03] LABS: BASOPHILS % (AUTO) 0.3 % (0.0-2.0); EOSINOPHILS % (AUTO) 2.7 % (0.0-6.0); HEMATOCRIT 24 % (39-51); HEMOGLOBIN 7.5 g/dL (13.5-17.5); LYMPHOCYTES # (AUTO) 1.1 K/uL (0.8-4.8); MEAN CORPUSCULAR HGB CONC 31 g/dl (31.0-36.0); MEAN CORPUSCULAR VOLUME 89 fL (80-96); MONOCYTES # (AUTO) 0.4 K/uL (0.1-1.30); MONOCYTES % (AUTO) 3.4 % (2.0-12.0); NEUTROPHILS # (AUTO) 10.2 K/uL (1.8-8.9); NEUTROPHILS % (AUTO) 84.6 % (43.0-81.0); PLATELET COUNT (AUTO) 159 K/uL (150-450); RED BLOOD CELL COUNT(AUTO) 2.68 MIL/uL (4.5-6.0); WHITE BLOOD COUNT (AUTO) 12.1 K/uL (4.3-11.0)
[2022-05-20 17:50] LABS: CALCIUM, SERUM 10.9 mg/dL (8.5-10.1); CARBON DIOXIDE 28 mmol/L (21-32); CHLORIDE 111 mmol/L (98-107); CREATININE 2.3 mg/dL (0.6-1.3); GLUCOSE 239 mg/dL (74-106); POTASSIUM 3.6 mmol/L (3.5-5.1); SODIUM SERUM 148 mmol/L (136-145)
[2022-05-20 18:02] LABS: UREA NITROGEN, BLOOD 81 mg/dL (7-18)
[2022-05-20] MEDS: ACETAMINOPHEN 325 MG TABLET PO PRN (20:53)
--- NOTE | 2022-05-20 21:18 | NUR ---
ICU/EGG BREAKING MACHINE OPERATOR 2100 DOSE OF HEPARIN WAS HELD DUE TO SOME BLEEDING AROUND THE G/TUBE AND H/H TODAY WAS 7.5/24 AND PLT 159. NOIFIED THE INSTRUMENTATION AND CONTROLS TECHNICIAN SUZI CAMP WHO SAID TO HOLD THE 2100 DOSE OF HEPARIN. CHARGE NURSE WAS NOTIFED AND WITNESS TO THE WASTE OF MEDICATION SINCE IT HAD BEEN DRAWN UP AND READY TO GIVE, UNABLE TO RETURN
--- NOTE | 2022-05-20 21:29 | NUR ---
ICU/ROLLER PRESSER OPERATOR WHEN PT WAS TURNED AND REPOSITIONED, PT HAD FACIAL GRIMACE. TYLENOL WAS GIVEN THROUGH THE G/TUBE FOR THIS. FLACC PAIN WAS 3/10. WILL MONITOR THIS PT.
[2022-05-21] VITALS (11 sets, daily range): BP systolic 138–175; BP diastolic 56–89
[2022-05-21] MEDS: BLOOD SUGAR DIAGNOSTIC 1 EACH STRIP IN SCH ×5 (00:28→23:58)
[2022-05-21] MEDS: INSULIN REGULAR, HUMAN 100 UNIT/ML 3 ML VIAL SQ PRN ×4 (00:29→18:07)
[2022-05-21] MEDS: IV NS 0.9% 250 ML IV PRN (00:54)
[2022-05-21] MEDS: hydrALAZINE HCL IV 20 MG VIAL IV PRN ×3 (04:36→16:21)
[2022-05-21 04:49] LABS: BASOPHILS % (AUTO) 0.2 % (0.0-2.0); EOSINOPHILS % (AUTO) 2.9 % (0.0-6.0); HEMATOCRIT 23 % (39-51); HEMOGLOBIN 7.4 g/dL (13.5-17.5); LYMPHOCYTES # (AUTO) 0.8 K/uL (0.8-4.8); LYMPHOCYTES % (AUTO) 7.4 % (20.0-44.0); MEAN CORPUSCULAR HGB CONC 32 g/dl (31.0-36.0); MEAN CORPUSCULAR VOLUME 87 fL (80-96); MONOCYTES # (AUTO) 0.4 K/uL (0.1-1.30); MONOCYTES % (AUTO) 3.7 % (2.0-12.0); NEUTROPHILS # (AUTO) 9.5 K/uL (1.8-8.9); NEUTROPHILS % (AUTO) 85.8 % (43.0-81.0); PLATELET COUNT (AUTO) 157 K/uL (150-450); RED BLOOD CELL COUNT(AUTO) 2.63 MIL/uL (4.5-6.0); WHITE BLOOD COUNT (AUTO) 11.1 K/uL (4.3-11.0)
[2022-05-21 05:02] LABS: CALCIUM, SERUM 11.4 mg/dL (8.5-10.1); CARBON DIOXIDE 29 mmol/L (21-32); CHLORIDE 112 mmol/L (98-107); CREATININE 2.3 mg/dL (0.6-1.3); GLUCOSE 205 mg/dL (74-106); MAGNESIUM 2.2 mg/dL (1.8-2.4); POTASSIUM 3.6 mmol/L (3.5-5.1); SODIUM SERUM 149 mmol/L (136-145)
--- NOTE | 2022-05-21 05:10 | NUR ---
ICU/HOME AGENT HYDRALAZINE 10MG IVP GIVEN BY PNEUMATIC JACK OPERATOR NURSE FOR SBP GREATER THAN 170'S FOR A FEW CYCLES. WILL MONITOR THIS PT'S BP.
--- NOTE | 2022-05-21 06:00 | NUR ---
DUNIA/MATERIAL HANDLING CREW SUPERVISOR PT WAS TRANSFER TO ROOM 113-1 FROM [facility]. REPORT TO BE GIVEN TO DAY NURSE.
[2022-05-21] MEDS: MEROPENEM 500 MG in IV NS 0.9% 50 ML IV SCH ×2 (06:31→18:08)
[2022-05-21 07:51] LABS: PHOSPHORUS 5.2 mg/dL (2.5-4.9); UREA NITROGEN, BLOOD 80 mg/dL (7-18)
[2022-05-21] MEDS: DAKINS QUARTER STRENGTH (0.125%) 480 ML BOTTLE TOP SCH (08:17)
[2022-05-21] MEDS: AMIODARONE HCL 200 MG TABLET GT SCH ×2 (08:17→21:03)
[2022-05-21] MEDS: THERAHONEY GEL 1.5 OZ TUBE TP SCH (08:18)
[2022-05-21] MEDS: HEPARIN SODIUM, PORCINE 5000 UNITS/1 ML VIAL SQ SCH ×2 (08:18→21:00)
[2022-05-21] MEDS: MUPIROCIN 2% CREAM 15 GM TUBE TP SCH ×2 (08:18→21:03)
[2022-05-21] MEDS: INSULIN GLARGINE, 100 UNIT/ML CARTRIDGE SQ SCH (08:19)
--- NOTE | 2022-05-21 10:26 | NUR ---
RN NOTE TALKED TO PT'S DAUGHTER VETO BENSON. PER DAUGHTER REQUEST, WILL NOTIFY DR. POSADAS OF FAMILY'S WISH TO TALK WITH PRIMARY MD REGARDING POSSIBLE COMFORT CARE FOR PT.
--- NOTE | 2022-05-21 19:30 | NUR ---
DUNIA/CHIEF ENGINEER RESEARCH REPORT RECEIVED FROM DAY NURSE. SEE FLOWSHEET FOR ASSESSMENT. PT WAS TURNED AND REPOSIONED FOR COMFORT AND CARE. WILL CONTINUE TO MONITOR THIS PT.
--- NOTE | 2022-05-21 20:45 | NUR ---
ICU/VB DEVELOPER 2100 DOSE OF HEPARIN WAS HELD DUE TO SOME BLEEDING AROUND THE G/TUBE AND H/H TODAY WAS 7.4/23 AND PLT 157. WILL CONTINUE TO MONITOR THIS PT AND HIS LABS
--- NOTE | 2022-05-21 21:04 | NUR ---
ICU/HOT STAMP OPERATOR WHEN PT WAS TURNED AND REPOSITIONED, PT HAD FACIAL GRIMACE. TYLENOL WAS GIVEN THROUGH THE G/TUBE FOR THIS. FLACC PAIN WAS 3/10. WILL MONITOR THIS PT.
[2022-05-22] VITALS: BP 162/74
[2022-05-22] MEDS: INSULIN REGULAR, HUMAN 100 UNIT/ML 3 ML VIAL SQ PRN ×3 (00:02→17:32)
[2022-05-22] MEDS: IV NS 0.9% 250 ML IV PRN (03:57)
[2022-05-22 04:00] VITALS: BP 179/75
[2022-05-22] MEDS: NEPRO 1,000 ML BOTTLE NG PRN (04:05)
[2022-05-22] MEDS: hydrALAZINE HCL IV 20 MG VIAL IV PRN ×3 (04:16→20:49)
--- NOTE | 2022-05-22 04:32 | NUR ---
DUNIA/LINUX SYSTEMS ENGINEER PT'S BLOOD PRESSURE WAS 185/62 THIS WAS THE FINAL BP FROM A FEW CYCLES, LET CHARGE NURSE ED SIERRA KNOWN WHO THEN GAVE PRN HYDRALAZINE 10MG IVP. WILL CONTINUE TO MONITOR THIS PT'S BP. @4432- THE RECHECK OF THE BLOOD PRESSURE POST MEDICATION WAS 156/58.
[2022-05-22] MEDS: BLOOD SUGAR DIAGNOSTIC 1 EACH STRIP IN SCH ×3 (05:18→17:33)
[2022-05-22] MEDS: MEROPENEM 500 MG in IV NS 0.9% 50 ML IV SCH (05:53)
--- NOTE | 2022-05-22 06:48 | NUR ---
DUNIA/GAUGE MACHINE OPERATOR REPORT GIVVEN TO DAY NURSE.
[2022-05-22 06:53] LABS: CALCIUM, SERUM 12.6 mg/dL (8.5-10.1); CARBON DIOXIDE 30 mmol/L (21-32); CHLORIDE 114 mmol/L (98-107); CREATININE 2.2 mg/dL (0.6-1.3); GLUCOSE 233 mg/dL (74-106); POTASSIUM 3.2 mmol/L (3.5-5.1); SODIUM SERUM 155 mmol/L (136-145)
--- NOTE | 2022-05-22 07:32 | NUR ---
RN OPENING NOTE RECEIVED [facility] FROM [facility] PATIENT REMAINS IN BED OBTUNDED ON MECHANICAL VENTILATOR TOLERATING SETTINGS WELL. IV ACCESS CLINT PICC FLUSHING EASILY WITHOUT RESISTANCE. BEASLEY CATHETER DRAINING OUTPUT BY GRAVITY. SAFETY MEASURES IMPLEMENTED WILL CONTINUE PLAN OF CARE AND ANTICIPATE NEEDS.
[2022-05-22 07:38] LABS: UREA NITROGEN, BLOOD 82 mg/dL (7-18)
[2022-05-22 08:00] VITALS: BP 189/65
[2022-05-22] MEDS ORDERED: POTASSIUM CHLORIDE 20 MEQ TAB.PRT.SR PO ONE (08:30)
[2022-05-22] MEDS: AMIODARONE HCL 200 MG TABLET GT SCH ×2 (08:34→20:47)
[2022-05-22] MEDS: HEPARIN SODIUM, PORCINE 5000 UNITS/1 ML VIAL SQ SCH ×2 (08:34→21:05)
--- NOTE | 2022-05-22 08:34 | NUR ---
NON ADMINISTER HEPARIN FOR LOW HEMOGLOBIN AND HEMATOCRIT
[2022-05-22] MEDS: DAKINS QUARTER STRENGTH (0.125%) 480 ML BOTTLE TOP SCH (08:42)
[2022-05-22] MEDS: MUPIROCIN 2% CREAM 15 GM TUBE TP SCH (08:42)
[2022-05-22] MEDS: THERAHONEY GEL 1.5 OZ TUBE TP SCH (08:43)
[2022-05-22] MEDS ORDERED: ZOSYN IVPB 3.375 G in IV D5W 50ml IV ONE (09:00)
[2022-05-22] MEDS ORDERED: NEPRO 1,000 ML BOTTLE PEG PRN (11:00)
[2022-05-22] MEDS: INSULIN GLARGINE, 100 UNIT/ML CARTRIDGE SQ SCH (11:17)
[2022-05-22 12:00] VITALS: BP 182/80
[2022-05-22] MEDS ORDERED: IV D5W 1,000 ML IV ONE (12:00)
[2022-05-22 12:11] LABS: BASOPHILS # (AUTO) 0.1 K/uL (0.0-0.2); BASOPHILS % (AUTO) 0.6 % (0.0-2.0); EOSINOPHILS % (AUTO) 2.6 % (0.0-6.0); HEMATOCRIT 26 % (39-51); HEMOGLOBIN 8.3 g/dL (13.5-17.5); LYMPHOCYTES # (AUTO) 1.1 K/uL (0.8-4.8); LYMPHOCYTES % (AUTO) 9.3 % (20.0-44.0); MEAN CORPUSCULAR HGB CONC 32 g/dl (31.0-36.0); MEAN CORPUSCULAR VOLUME 88 fL (80-96); MONOCYTES # (AUTO) 0.4 K/uL (0.1-1.30); MONOCYTES % (AUTO) 3.2 % (2.0-12.0); NEUTROPHILS # (AUTO) 10.2 K/uL (1.8-8.9); NEUTROPHILS % (AUTO) 84.3 % (43.0-81.0); PLATELET COUNT (AUTO) 197 K/uL (150-450); RED BLOOD CELL COUNT(AUTO) 2.93 MIL/uL (4.5-6.0); WHITE BLOOD COUNT (AUTO) 12.1 K/uL (4.3-11.0)
[2022-05-22] MEDS ORDERED: GLUCERNA 1.2 1,000 ML BOTTLE GT PRN (12:30)
[2022-05-22] MEDS: MICAFUNGIN SODIUM 100 MG in IV NS 0.9% 100 ML IV SCH (12:41)
[2022-05-22 12:44] LABS: BAND % (MANUAL) 3 % (0.0-5.0); BASOPHILS % (MANUAL) 1 % (0.0-2.0); EOSINOPHILS % (MANUAL) 2 % (0-4); LYMPHOCYTES % (MANUAL) 6 % (16-48); MONOCYTES % (MANUAL) 2 % (0-11.0); NEUTROPHILS % (MANUAL) 86 (42-76)
[2022-05-22] MEDS ORDERED: VANCOMYCIN 1 GM in IV D5W 250ml IV ONE (14:00)
[2022-05-22] MEDS ORDERED: EPOETIN ALFA-EPBX 10,000 UNIT/ML VIAL SQ ONE (15:00)
[2022-05-22 16:00] VITALS: BP 191/68
[2022-05-22] MEDS: PIPERACILLIN /TAZOBACTAM 3.375 G in IV D5W 100 ML IV SCH (16:23)
--- NOTE | 2022-05-22 18:46 | NUR ---
HAND OFF REPORT GIVEN TO NIGHTSHIFT NURSE.
[2022-05-22 20:00] VITALS: BP 177/87
[2022-05-23] VITALS: BP_SYST 173; BP_SYST 177; BP_DIAS 77; BP_DIAS 87
[2022-05-23] MEDS: BLOOD SUGAR DIAGNOSTIC 1 EACH STRIP IN SCH ×3 (00:43→12:09)
[2022-05-23] MEDS: INSULIN REGULAR, HUMAN 100 UNIT/ML 3 ML VIAL SQ PRN ×3 (00:47→12:08)
[2022-05-23] MEDS: PIPERACILLIN /TAZOBACTAM 3.375 G in IV D5W 100 ML IV SCH ×2 (00:57→08:42)
[2022-05-23] MEDS: hydrALAZINE HCL IV 20 MG VIAL IV PRN ×2 (01:25→14:20)
[2022-05-23 04:00] VITALS: BP 156/92
--- NOTE | 2022-05-23 07:00 | NUR ---
TELE CLOSING NOTE: OBTUNDED. TRACH WITH VENT WORKING AT PRESCRIBED SETTINGS. GT PATENT IN PLACE. NO SIDE EFFECTS OF ABX. HOB ELEVATED SEMI-JUNIOR POSITION. BILATERAL HALF SIDE RAILS UPX2. BED IN LOW POSITION, LOCKED, EXIT ALARM ON, CALL LIGHT IN REACH.
--- NOTE | 2022-05-23 07:28 | NUR ---
RN OPENING NOTE [facility] PATIENT REMAINS IN BED OBTUNDED ON MECHANICAL VENTILATOR TOLERATING SETTINGS WELL. IV ACCESS CLINT PICC FLUSHING EASILY WITHOUT RESISTANCE. BEASLEY CATHETER DRAINING OUTPUT BY GRAVITY. SAFETY MEASURES IMPLEMENTED.
[2022-05-23 08:00] VITALS: BP 139/76
[2022-05-23 08:03] LABS: BASOPHILS # (AUTO) 0.1 K/uL (0.0-0.2); BASOPHILS % (AUTO) 0.5 % (0.0-2.0); EOSINOPHILS % (AUTO) 3.5 % (0.0-6.0); HEMATOCRIT 25 % (39-51); HEMOGLOBIN 8.2 g/dL (13.5-17.5); LYMPHOCYTES # (AUTO) 0.8 K/uL (0.8-4.8); LYMPHOCYTES % (AUTO) 5.8 % (20.0-44.0); MEAN CORPUSCULAR HGB CONC 33 g/dl (31.0-36.0); MEAN CORPUSCULAR VOLUME 88 fL (80-96); MONOCYTES # (AUTO) 0.5 K/uL (0.1-1.30); MONOCYTES % (AUTO) 3.7 % (2.0-12.0); NEUTROPHILS # (AUTO) 11.1 K/uL (1.8-8.9); NEUTROPHILS % (AUTO) 86.5 % (43.0-81.0); PLATELET COUNT (AUTO) 194 K/uL (150-450); RED BLOOD CELL COUNT(AUTO) 2.86 MIL/uL (4.5-6.0); WHITE BLOOD COUNT (AUTO) 12.9 K/uL (4.3-11.0)
[2022-05-23 08:14] LABS: ALANINE AMINOTRANSFERASE 27 U/L (12-78); ALBUMIN 2.1 g/dL (3.4-5.0); ALKALINE PHOSPHATASE 122 U/L (46-116); ASPARTATE AMINOTRANSFERASE 22 U/L (15-37); BILIRUBIN,TOTAL 0.3 mg/dL (0.2-1.0); CALCIUM, SERUM 12.6 mg/dL (8.5-10.1); CARBON DIOXIDE 30 mmol/L (21-32); CHLORIDE 111 mmol/L (98-107); CREATININE 2.3 mg/dL (0.6-1.3); GLUCOSE 235 mg/dL (74-106); MAGNESIUM 2.5 mg/dL (1.8-2.4); PHOSPHORUS 5.8 mg/dL (2.5-4.9); POTASSIUM 3.5 mmol/L (3.5-5.1); SODIUM SERUM 151 mmol/L (136-145); TOTAL PROTEIN, SERUM 6.8 g/dL (6.4-8.2); UREA NITROGEN, BLOOD 79 mg/dL (7-18)
[2022-05-23] MEDS: AMIODARONE HCL 200 MG TABLET GT SCH (08:42)
[2022-05-23] MEDS: INSULIN GLARGINE, 100 UNIT/ML CARTRIDGE SQ SCH (08:45)
[2022-05-23] MEDS: HEPARIN SODIUM, PORCINE 5000 UNITS/1 ML VIAL SQ SCH (08:46)
[2022-05-23] MEDS: DAKINS QUARTER STRENGTH (0.125%) 480 ML BOTTLE TOP SCH (09:09)
[2022-05-23] MEDS: THERAHONEY GEL 1.5 OZ TUBE TP SCH (09:10)
[2022-05-23 12:00] VITALS: BP 134/74
[2022-05-23] MEDS: MICAFUNGIN SODIUM 100 MG in IV NS 0.9% 100 ML IV SCH (12:04)
[2022-05-23 14:20] VITALS: BP 172/98
== END 2022-05-23 14:28 | disposition hospice, inpatient (51) | DRG 870 ==
LOC: ER 05:48 → ICU 09:24 → TELE1 05-21 05:59 → TELE-TD 05-21 13:59 → TELE1 05-22 09:38
PROVIDERS: ADMIT Nurse Practitioner Acute Care; ATTEND Internal Medicine
PROC: 5A1955Z Respiratory Ventilation, Greater than 96 Consecutive Hours (ICD-10-PCS; principal; 2022-05-14)
PROC: 5A1D70Z Performance of Urinary Filtration, Intermittent, Less than 6 Hours Per Day (ICD-10-PCS; 2022-05-14)
PROC: 02HV33Z Insertion of Infusion Device into Superior Vena Cava, Percutaneous Approach (ICD-10-PCS; 2022-05-14)
PROC: B548ZZA Ultrasonography of Superior Vena Cava, Guidance (ICD-10-PCS; 2022-05-14)
PROC: 05HY33Z Insertion of Infusion Device into Upper Vein, Percutaneous Approach (ICD-10-PCS; 2022-05-14)
PROC: 5A09357 Assistance with Respiratory Ventilation, Less than 24 Consecutive Hours, Continuous Positive Airway Pressure (ICD-10-PCS; 2022-05-17)
PROC: 30233N1 Transfusion of Nonautologous Red Blood Cells into Peripheral Vein, Percutaneous Approach (ICD-10-PCS; 2022-05-17)
DX: A41.9 Sepsis, unspecified organism (principal); J96.21 Acute and chronic respiratory failure with hypoxia; N17.0 Acute kidney failure with tubular necrosis; G93.41 Metabolic encephalopathy; R53.2 Functional quadriplegia; J15.6 Pneumonia due to other Gram-negative bacteria; D68.59 Other primary thrombophilia; N39.0 Urinary tract infection, site not specified; J95.851 Ventilator associated pneumonia; Z99.11 Dependence on respirator [ventilator] status; E87.20 Acidosis, unspecified; E87.1 Hypo-osmolality and hyponatremia; E87.0 Hyperosmolality and hypernatremia; Z20.822 Contact with and (suspected) exposure to COVID-19; Z86.73 Personal history of transient ischemic attack (TIA), and cerebral infarction without residual deficits; Z93.1 Gastrostomy status; Z51.5 Encounter for palliative care; Z99.2 Dependence on renal dialysis; Z93.0 Tracheostomy status; R13.10 Dysphagia, unspecified; G40.909 Epilepsy, unspecified, not intractable, without status epilepticus; I48.91 Unspecified atrial fibrillation; Z87.19 Personal history of other diseases of the digestive system; E87.70 Fluid overload, unspecified; Y84.8 Other medical procedures as the cause of abnormal reaction of the patient, or of later complication, without mention of misadventure at the time of the procedure; Y92.129 Unspecified place in nursing home as the place of occurrence of the external cause; Z79.84 Long term (current) use of oral hypoglycemic drugs; Z79.4 Long term (current) use of insulin; Z79.899 Other long term (current) drug therapy; Z79.82 Long term (current) use of aspirin; R65.20 Severe sepsis without septic shock; E87.5 Hyperkalemia; E11.9 Type 2 diabetes mellitus without complications; I12.9 Hypertensive chronic kidney disease with stage 1 through stage 4 chronic kidney disease, or unspecified chronic kidney disease; E11.22 Type 2 diabetes mellitus with diabetic chronic kidney disease; N18.9 Chronic kidney disease, unspecified; E83.39 Other disorders of phosphorus metabolism; Y95 Nosocomial condition; D64.9 Anemia, unspecified; B96.89 Other specified bacterial agents as the cause of diseases classified elsewhere; D69.6 Thrombocytopenia, unspecified; X58.XXXA Exposure to other specified factors, initial encounter; Y92.9 Unspecified place or not applicable; S31.000A Unspecified open wound of lower back and pelvis without penetration into retroperitoneum, initial encounter; E87.6 Hypokalemia; K43.9 Ventral hernia without obstruction or gangrene; N20.0 Calculus of kidney; N28.1 Cyst of kidney, acquired; Z66 Do not resuscitate
CPT/HCPCS: 31720; 36415; 36600; 71045-TC; 80048-TC; 80053-TC; 80061-TC; 80076-TC; 80202-TC; 81001; 82607-TC; 82728-TC; 82803-TC; 82962-TC; 83540-TC; 83605-TC; 83735-TC; 83880; 84100-TC; 84484-TC; 85025-TC; 85730-TC; 86704; 86705; 86706; 86803; 86850-TC; 87040-TC; 87070-TC; 87081-TC; 87086-TC; 87186-TC; 87340; 90935-TC; 93307-TC; 94002-TC; 94003-TC; 94760-TC; 94762-TC; 94799-TC; 99082-TC; A4349; A4623; A6253; A7526; C9803; G0378; J0282; J0360; J0885; J1644; J1815; J2185; J2248; J2543; J2597; J3370; J3490; J7030; J7050; J7060; J7070; P9016

== ENCOUNTER 2022-05-23 14:29 | Inpatient (IN) | payer OTHER ==
[~2022-05-23] VITALS: Ht 170.2 cm; Wt 78.0 kg
[~2022-05-23 14:29] MED LIST: ACET-2605 GT; ACET-868 GT; ACET650S11 RC; ALBU2.5V38 IH; AMIN30LI2 GT; AMLO-212 GT; ASCO-352 GT; ASPI-1169 GT; BISA10SU11 RC; CHLO473M5 MM; CLON1PAT2 TD; COLL30OI TP; CRAN3875 GT; CRAN425C6 GT; DEXT38GE12 GT; DOCU50LI GT; HYDR-4076 GT; HYDR-4303 GT; INSU100V42 SQ; INSU100V7 SQ; IPRA0.2S9 IH; LANS30CA56 GT; MAGN400O6 GT; MERO1VIA23 IV; METF-442 GT; METO25TA20 GT; MULT-447 GT; NUT.237L30 GT; NUTR1PAC14 GT; SENN-261 GT; ZINC50TA69 GT
[2022-05-23 16:00] VITALS: BP 137/68
[2022-05-23] MEDS ORDERED: MORPHINE SULFATE INJ 2 MG/ML DISP.SYRIN IV ONE (17:40)
[2022-05-23] MEDS ORDERED: LORAZEPAM INJ 2 MG/ML VIAL IV PRN (18:00)
--- NOTE | 2022-05-23 18:38 | NUR ---
RN CLOSING NOTE HOSPICE PATIENT, PATIENT WAS DISCONNECTED FROM VENT PLACED ON TACH MASK 5L. MORPHINE GIVEN 1800. FAMILY AT BEDSIDE. PATIENT TO RECEIVED 1MG OF ATIVAN AND 1MG OF MORPHINE 1MG IVP Q1HR. WILL ENDORSE PATIENT TO NIGHT NURSE FOR FURTHER CARE
[2022-05-23] MEDS: MORPHINE SULFATE INJ 2 MG/ML DISP.SYRIN IV PRN ×3 (18:46→21:36)
--- NOTE | 2022-05-23 20:00 | NUR ---
GOVERNMENT DOCUMENTS LIBRARIAN NOTE PT IN BED OBTUNDED. EYES CLOSED. PT HAS TRACH PORTEX #7 5L O2 AT THIS TIME. RESP RATE IS 35. NO S/S OF PAIN NOTED. GT INTACT AND CLAMPED. F/C INTACT AND PATENT DRAINING YELLOWISH COLOR URINE. FAMILY AT BED SIDE. SIDE RAILS UP X 3 AND CALL LIGHT WITHIN REACH. CONTINUE TO MONITOR HIM.
--- NOTE | 2022-05-23 23:24 | NUR ---
WAREHOUSE SHIFT SUPERVISOR NOTE REPORT GIVEN TO NURSE SALCEDO FOR CONTINUE TO CARE.
--- NOTE | 2022-05-23 23:30 | NUR ---
SCOURING TRAIN OPERATOR CHIEF NOTE PT IN BED OBTUNDED. EYES CLOSED. FAMILY AT BEDSIDE. TELE MONITOR READING ST. PT HAS TRACH PORTEX #7 5L O2 AT THIS TIME. RESP RATE IS 35. NO S/S OF PAIN NOTED. GT INTACT AND CLAMPED. F/C INTACT AND PATENT DRAINING YELLOWISH COLOR URINE. FAMILY AT BED SIDE. SIDE RAILS UP X 3 AND CALL LIGHT WITHIN REACH. WILL CONTINUE TO MONITOR HIM.
[2022-05-24] MEDS: MORPHINE SULFATE INJ 2 MG/ML DISP.SYRIN IV PRN ×2 (01:41)
--- NOTE | 2022-05-24 06:30 | NUR ---
TRAUMA PROGRAM MANAGER NOTE PT IN BED OBTUNDED. EYES CLOSED. FAMILY AT BEDSIDE. TELE MONITOR READING ST HR 107. PT HAS TRACH PORTEX #7 5L O2 AT THIS TIME. RESP RATE IS 33. NO S/S OF PAIN NOTED. GT INTACT AND CLAMPED. F/C INTACT AND PATENT DRAINING YELLOWISH COLOR URINE. FAMILY AT BED SIDE. SIDE RAILS UP X 3 AND CALL LIGHT WITHIN REACH. WILL ENDORSE TO MORNING SHIFT FOR CORIE.
[2022-05-24 08:00] VITALS: BP 180/64
--- NOTE | 2022-05-24 08:00 | NUR ---
DR POSADAS AWARE OF ABNORMAL 8AM VS, ALSO T=102.3F; P0AOA=00%; NO NEW ORDER MADE.
[2022-05-24] MEDS ORDERED: MORPHINE SULFATE PF DRIP 250 MG in IV D5W 240 ML IV PRN (10:00)
[2022-05-24] MEDS ORDERED: KEY,NONCONTROL,TO KEEP IN PYXI 1 EA MC ONE (10:29)
[2022-05-24] MEDS: SCOPOLAMINE PATCH 1 MG/72HR TD SCH (11:39)
[2022-05-24 12:00] VITALS: BP 173/73
[2022-05-24 16:00] VITALS: BP 146/61
--- NOTE | 2022-05-24 19:20 | NUR ---
RN NOTES RECEIVED PT FOR CONTINUITY OF CARE. PATIENT OBTUNDED IN NO S/SX OF ACUTE DISTRESS AT THIS TIME; CURRENTLY ON 5K; WITH 02 SAT >@78% AT THIS TIME. WITH IV ACCESS R UPPER AM PICC LINE PATENT, INTACT AND FLUSHING WELL. WITH RUNNING MORPHINE DRIP ORDERED. WILL ENSURE SAFETY MEASURES WITHIN THE SHIFT. PATIENT BED ALARM IS ON. HEAD OF BED ELEVATED. BED IS LOCKED, IN LOWEST POSITION AND SIDE RAILS UP. CALL LIGHT WITHIN REACH OF THE PATIENT. WILL CONTINUE TO MONITOR AND REASSESS FOR ANY CHANGES AND WILL CARRY OUT ANY ONGOING AND ACTIVE MD ORDER.
--- NOTE | 2022-05-25 04:00 | NUR ---
RN NOTES NO NOTED CHANGES IN PATIENT CONDITION AT THIS TIME; NO SIGNS OF ACUTE RESPIRATORY DISTRESS. AM PATIENT CARE RENDERED.WILL CONTINUE TO MONITOR AND REASSESS FOR ANY CHANGES THROUGHOUT THE SHIFT.
--- NOTE | 2022-05-25 06:31 | NUR ---
RN CLOSING NOTE: PATIENT REMAINS IN ROOM IN NO SIGNS OF RESPIRATORY DISTRESS, ON HOSPICE CARE PATIENT STILL ON 5L OF 02; TOLERATING WELL SATURATING @ >90% SP02. FAMILY AT BEDSIDE. SAFETY MEASURES IMPLEMENTED, BED IN LOWEST POSITION, LOCKED, SIDE RAILS UP, CALL LIGHT WITHIN REACH. ALL NEEDS AND ORDERS ADDRESSED DURING THE SHIFT. IV ACCESS MAINTAINED INTACT, SECURED AND FLUSHING WELL. STILL ON MORPHINE DRIP RUNNING PER PROTOCOL. PATIENT KEPT CLEAN AND COMFORTABLE WITHIN THE SHIFT. PATIENT WILL BE ENDORSED TO INCOMING SHIFT RN FOR CORIE.
--- NOTE | 2022-05-25 08:00 | NUR ---
RN OPENING NOTE: PATIENT IN BED SLEEPING, AT THE BEDSIDE, IN NO SIGNS OF RESPIRATORY DISTRESS, ON HOSPICE CARE PATIENT STILL ON 5L OF 02; TOLERATING WELL SATURATING @ >90% SP02. SAFETY MEASURES IMPLEMENTED, BED IN LOWEST POSITION, LOCKED, SIDE RAILS UP, CALL LIGHT WITHIN REACH. ALL NEEDS AND ORDERS ADDRESSED DURING THE SHIFT. IV ACCESS MAINTAINED INTACT, SECURED AND FLUSHING WELL. STILL ON MORPHINE DRIP RUNNING PER PROTOCOL. WILL CONTINUE PLAN OF CARE.
[2022-05-25] MEDS ORDERED: KEY,NONCONTROL,TO KEEP IN PYXI 1 EA MC ONE ×2 (10:41→10:48)
--- NOTE | 2022-05-25 18:30 | NUR ---
RN CLOSING NOTE: PATIENT NOTED SLEEPING, IN NO SIGNS OF RESPIRATORY DISTRESS, ON HOSPICE CARE PATIENT STILL ON 5L OF 02; TOLERATING WELL SATURATING @ >90% SP02. FAMILY AT BEDSIDE. SAFETY MEASURES IMPLEMENTED, BED IN LOWEST POSITION, LOCKED, SIDE RAILS UP, CALL LIGHT WITHIN REACH. WOUND CARE RENDERED. F/C PATENT AND INTACT, DRAINING 750CC CLEAR URINE. IV ACCESS MAINTAINED PATENT AND INTACT. SECURED AND FLUSHING WELL. STILL ON MORPHINE DRIP RUNNING PER PROTOCOL. PATIENT KEPT CLEAN AND COMFORTABLE WITHIN THE SHIFT. WILL ENDORSED TO FURNITURE DELIVERY DRIVER NURSE FOR CORIE. Addendum: 05/25/22 at 1909 by DICK YUEN RN VS T 98.5 HR 108 RR 22 BP 119/66 02 SAT 100% 5LPM 02
--- NOTE | 2022-05-25 20:30 | NUR ---
RN NOTE NOTED PT WITH FEVER AT 101.3. COOLING MEASURES PROVIDED. DAUGHTER AT BEDSIDE REFUSING PRN MEDS FOR FEVER. WILL CONT TO PROVIDE COMFORT CARE.
--- NOTE | 2022-05-26 06:30 | NUR ---
IT DISASTER RECOVERY MANAGER CLOSING NOTE: PATIENT SLEEPING IN BED, IN NO SIGNS OF RESPIRATORY DISTRESS, ON HOSPICE CARE PATIENT STILL ON 5L OF 02; TOLERATING WELL SATURATING @ 98% SP02. FAMILY AT BEDSIDE. F/C PATENT AND INTACT, DRAINING CLEAR YELLOW COLORED URINE. IV ACCESS ON CLINT ML PATENT, INTACT AND FLUSHING WELL. STILL ON MORPHINE DRIP RUNNING PER PROTOCOL. SAFETY MEASURES IN PLACED, BED IN LOWEST POSITION, LOCKED, SIDE RAILS UP, CALL LIGHT WITHIN REACH. WILL ENDORSE TO AM SHIFT NURSE FOR CONTINUITY OF CARE.
[2022-05-26 08:00] VITALS: BP 85/21
[2022-05-26] MEDS ORDERED: KEY,NONCONTROL,TO KEEP IN PYXI 1 EA MC ONE ×2 (10:51→11:04)
[2022-05-26 16:00] VITALS: BP 105/40
--- NOTE | 2022-05-26 18:00 | NUR ---
RN NOTE PATIENT ON 3 MG MORPHINE DRIP. NO S/S OF SOB OR DISTRESS WILL INDORSE THE PATIENT FOR SUPERVISOR LONG GOODS NURSE.
--- NOTE | 2022-05-26 19:00 | NUR ---
RN CLOSING NOTE: PATIENT SLEEPING IN BED, IN NO SIGNS OF RESPIRATORY DISTRESS, ON HOSPICE CARE PATIENT STILL ON 5L OF 02; TOLERATING WELL SATURATING @ 98% SP02. AT BEDSIDE. , DRAINING CLEAR YELLOW COLORED URINE. IV ACCESS ON CLINT ML PATENT, INTACT AND FLUSHING WELL. STILL ON MORPHINE DRIP RUNNING PER PROTOCOL. SAFETY MEASURES IN PLACED, BED IN LOWEST POSITION, LOCKED, SIDE RAILS UP, CALL LIGHT WITHIN REACH. WILL ENDORSE TO AM SHIFT NURSE FOR CONTINUITY OF CARE.
--- NOTE | 2022-05-26 19:44 | NUR ---
ANNEALING TORCH OPERATOR OPENING NOTE: RECEIVED PATIENT SLEEPING IN BED, IN NO SIGNS OF RESPIRATORY DISTRESS, ON HOSPICE CARE PATIENT STILL ON 5L OF 02; TOLERATING WELL SATURATING @ >90% SP02. FAMILY AT BEDSIDE. F/C PATENT AND INTACT, DRAINING CLEAR YELLOW COLORED URINE. IV ACCESS ON CLINT ML PATENT, INTACT AND FLUSHING WELL. STILL ON MORPHINE DRIP RUNNING PER PROTOCOL. SAFETY MEASURES IN PLACED, BED IN LOWEST POSITION, LOCKED, SIDE RAILS UP, CALL LIGHT WITHIN REACH. WILL CONTINUE TO MONITOR THROUGHOUT THE SHIFT.
--- NOTE | 2022-05-27 06:20 | NUR ---
RN NOTE BULK DRIVER AT BEDSIDE FOR UPDATES AND EVALUATION.
--- NOTE | 2022-05-27 06:42 | NUR ---
MAMMAL KEEPER CLOSING NOTE: PATIENT REMAINS IN BED, IN NO SIGNS OF RESPIRATORY DISTRESS, ON HOSPICE CARE PATIENT STILL ON 5L OF 02; TOLERATING WELL SATURATING @ 100% SP02. FAMILY AT BEDSIDE. F/C PATENT AND INTACT, DRAINING CLEAR YELLOW COLORED URINE. IV ACCESS ON CLINT ML PATENT, INTACT AND FLUSHING WELL. STILL ON MORPHINE DRIP RUNNING PER PROTOCOL. SAFETY MEASURES IN PLACED, BED IN LOWEST POSITION, LOCKED, SIDE RAILS UP, CALL LIGHT WITHIN REACH. WILL ENDORSE TO AM SHIFT NURSE FOR CONTINUITY OF CARE.
--- NOTE | 2022-05-27 08:00 | NUR ---
patient getting morphine drio at 3mg/hr he looks peacefully at present time no signs resp distress noted
[2022-05-27] MEDS: SCOPOLAMINE PATCH 1 MG/72HR TD SCH (09:43)
--- NOTE | 2022-05-27 11:29 | NUR ---
no spontaneous movements were present there was not response to verbal or tactile stimuli pupils were mid dilated and fixed . pnounced at present time family was notified
--- NOTE | 2022-05-27 11:30 | NUR ---
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
--- NOTE | 2022-05-27 11:45 | NUR ---
RN NOTE PT PRONOUNCED @1130 BY CN AND DRY HOUSE ATTENDANT, PMD AND HOSPICE MADE AWARE. PT NO PULSE UPON PALPATION AND V/S. TELE MONITOR SHOWING ASYSTOLE. SPOKE WITH ANTHROPOLOGIST PHYSICAL SHIELLA.
--- NOTE | 2022-05-27 12:00 | NUR ---
[facility] called # [phone] case number is [id number]
[2022-05-27] MEDS ORDERED: KEY,NONCONTROL,TO KEEP IN PYXI 1 EA MC ONE (12:04)
--- NOTE | 2022-05-27 13:31 | NUR ---
family at bed side
--- NOTE | 2022-05-27 13:37 | NUR ---
post mortem care done at this time
--- NOTE | 2022-05-27 14:38 | NUR ---
body sent to [facility] tel [phone] family left
== END 2022-05-27 11:30 | DRG 871 ==
LOC: HOSPICE1 14:29
PROVIDERS: ADMIT Internal Medicine; ATTEND Internal Medicine
PROC: 5A1935Z Respiratory Ventilation, Less than 24 Consecutive Hours (ICD-10-PCS; principal; 2022-05-23)
DX: A41.9 Sepsis, unspecified organism (principal); G93.41 Metabolic encephalopathy; R53.2 Functional quadriplegia; J96.21 Acute and chronic respiratory failure with hypoxia; N17.0 Acute kidney failure with tubular necrosis; J15.6 Pneumonia due to other Gram-negative bacteria; D68.59 Other primary thrombophilia; N39.0 Urinary tract infection, site not specified; E87.20 Acidosis, unspecified; Z99.11 Dependence on respirator [ventilator] status; I50.9 Heart failure, unspecified; Z51.5 Encounter for palliative care; Z66 Do not resuscitate; Z79.4 Long term (current) use of insulin; Z79.84 Long term (current) use of oral hypoglycemic drugs; Z79.899 Other long term (current) drug therapy; Z79.82 Long term (current) use of aspirin; Z79.51 Long term (current) use of inhaled steroids; E87.5 Hyperkalemia; I10 Essential (primary) hypertension; I48.91 Unspecified atrial fibrillation; R65.20 Severe sepsis without septic shock; Y95 Nosocomial condition; Z86.73 Personal history of transient ischemic attack (TIA), and cerebral infarction without residual deficits; R13.10 Dysphagia, unspecified
CPT/HCPCS: G0378; J2060; J2270; J2274; J7060